=== PATIENT | male | born 1945 | race Caucasian/White ===

== ENCOUNTER 2017-03-31 10:54 | Emergency (ER) | payer MEDICARE, OTHER ==
[~2017-03-31] VITALS: Ht 193 cm; Wt 93.0 kg
[2017-03-31] MEDS ORDERED: ASPIR-LOW81 MG PO (11:08)
[2017-03-31] MEDS ORDERED: NORCO 5-325 TA1 EACH PO (12:14)
--- NOTE | 2017-03-31 19:17 | EKG ---
[facility] [address] [facility] [place] [address] Signed Sinus rhythm with occasional premature ventricular complexes Inferior infarct , age undetermined Abnormal ECG No previous ECGs available Confirmed by RITCHIE LEE MD ([id number]) on 03/31/2017 7:17:40 PM Electronically Signed By: RITCHIE LEE MD 03/31/171916 PATIENT NAME: LIAM MACARIO Electrocardiogram DATE OF : 49 PHYSICIAN: RITCHIE LEE MD REPORT #: [id number] REPORT IS CONFIDENTIAL AND NOT TO BE RELEASED WITHOUT AUTHORIZATION
== END 2017-03-31 12:50 | disposition home or self-care (01) ==
LOC: ED 10:54
DX: S42.001A Fracture of unspecified part of right clavicle, initial encounter for closed fracture (principal); S01.01XA Laceration without foreign body of scalp, initial encounter; S09.90XA Unspecified injury of head, initial encounter; Z79.82 Long term (current) use of aspirin; Z23 Encounter for immunization; W18.30XA Fall on same level, unspecified, initial encounter
CPT/HCPCS: 70450; 71010; 73000; 80053; 84484; 85025; 90471; 90715; 93005; 93010; 96360; 99284; J7030

== ENCOUNTER 2017-04-06 05:45 | Day surgery (SDC) | payer MEDICARE, OTHER ==
[~2017-04-06] VITALS: Ht 193 cm; Wt 93.0 kg
[~2017-04-06 05:45] MED LIST: ASPIR-LOW81 MG PO; NORCO 5-325 TA1 EACH PO
--- NOTE | 2017-04-06 06:37 | NUR ---
LE 0545: PT ARRIVED TO ROOM 5 WITH . WIPE DOWN COMPLETE. PT C/O CONSTIPATION, PT STATES " I FEEL LIKE I HAVE TO HAVE A BM, BUT CAN'T." PT'S STATES THAT HE HAS HAD COLACE WITH NO RESULTS, HAS NOT HAD ANY OTHER OTCS. ADMISSION COMPLETED, IV PLACED IN THE L FORARM. CONSENTS SIGNED AND WITNESSED. EDUCATION COMPLETE, CALL LIGHT IN REACH. PT IN BED RESTING.
--- NOTE | 2017-04-06 09:02 | NUR ---
04/06/17 0902 Cary Hernandez 0893 REPORT FROM CAT BREEDER. PT HAS SCAB ON HEAD WITH SUTURES REMOVED BY OR, SMALL AMOUNT OF DRAINAGE NOTED. BRUISING NOTED ON CHEST AND UP ON RIGHT SHOULDER. RESP EVEN AND UNLABERED.
[2017-04-06] MEDS ORDERED: OXYCODONE HCL5 MG PO ×2 (10:27→10:30)
--- NOTE | 2017-04-06 11:01 | NUR ---
LE 0945: PT RETURNED TO ROOM FROM PACU. RESTING, AWAKENS TO VOICE. RATES PAIN 5/10 IN THE R SHOULDER WHICH THE PT STATES "IS TOLERABLE." REPORT RECVD, VITALS OBTAINED. DRSG C/D/I, CRYO CUFF AND SLING IN PLACE. NO FURTHER NEEDS AT THIS TIME, CALL LIGHT IN REACH. AT BEDSIDE.
--- NOTE | 2017-04-06 11:04 | NUR ---
LE 1045: IN TO CHECK ON PT, PT AWAKE SITTING IN BED. VITALS TAKEN. CRACKERS AND JELLO GIVEN PER REQUEST. PT TOLERATED WELL. PO PAIN MEDICATION GIVEN. PT ADVISED NEED TO URINATE BEFORE DISCHARGE. NO FURTHER NEEDS AT THIS TIME, CALL LIGHT IN REACH. AT BEDSIDE.
--- NOTE | 2017-04-13 08:04 | OR ---
[facility] [address] [place], [place] [address] Signed DATE OF OPERATION: 04/06/2017 SURGEON: Mika Payne MD PREOPERATIVE DIAGNOSIS: Displaced comminuted right clavicle fracture. POSTOPERATIVE DIAGNOSIS: Displaced comminuted right clavicle fracture. PROCEDURE PERFORMED: Open reduction and internal fixation, right clavicle. HOUSING DEVELOPMENT SPECIALIST: Crystal Rodney PA-C. Crystal was present for critical positioning, retraction, and wound closure. ANESTHESIA: General with interscalene block. BLOOD LOSS: 100 mL. IMPLANTS: A 7-hole 3.5 mm clavicle plate with 8 screws. BRIEF HISTORY: José Miguel is a 71-year-old gentleman who was at work and hit his head on an aircraft prop, knocking himself out and falling on the ground, fracturing his clavicle. His head was cleared by CT scan and week elapsed allowing the soft tissue to settle down. We elected to take him to the operating room, after we had a discussion of risks, benefits, alternatives, and he elected to proceed. DESCRIPTION OF PROCEDURE: Once consent was obtained, he was taken to the operating room. After adequate anesthesia, he was placed in the low beach-chair position, all downside pressure points well padded. The right arm was prepped and draped in standard sterile fashion up to the angle of the jaw. The fracture was identified on the image intensifier and a 3-inch incision was centered over this and taken through skin subcutaneous tissue. The fracture was extensively comminuted and distracted. The fracture pieces were dissected free and Electronically Signed By: MIKA PAYNE MD 04/12/17 0833 PATIENT NAME: JOSÉ MIGUEL MACARIO OPERATIVE REPORT DATE OF : 49 PHYSICIAN: MIKA PAYNE MD REPORT #: [id number] REPORT IS CONFIDENTIAL AND NOT TO BE RELEASED WITHOUT AUTHORIZATION [facility] [address] [place], [place] [address] Signed all overlying soft tissue was removed. The shoulder was elevated and the fracture was brought into position and clamped. It took several attempts of reduction of 2 clamps to get it in position. A 1.6 mm K-wire was then advanced from the anterior aspect of the medial portion of the fracture and across the fracture line holding in position. Plate was then fashioned to fit the superior and anterior superior aspects of the clavicle and this was checked using image intensifier and found to be in good position. Two screws were placed and then the K-wire was removed. The remaining screws were placed. Two screws were placed in lag fashion through the fracture itself. The inferior fragment was then clamped into position and lagged with 1 screw through the plate and one 2.7 screw anterior to the plate. The holes in the plate were drilled and appropriate length screws were placed. This was checked using image intensifier. Once screw was found to be long, it was replaced with a shorter screw. The final radiograph showed good reduction and good plate placement of screw length. Wound was copiously irrigated with antibiotic solution. The deltoid was closed with 0 Vicryl. The subcutaneous tissue with 2-0 Monocryl and the skin with kvng. Wound was dressed with Mepilex Ag dressing and ABD and he was awakened and taken to the recovery room in satisfactory condition. He was placed in an UltraSling. He tolerated the procedure well. All sponge, needle, and instrument counts were correct. Mika Payne MD BA/SHARONL /[id number] Electronically Signed By: MIKA PAYNE MD 04/12/17 0833 PATIENT NAME: JOSÉ MIGUEL MACARIO OPERATIVE REPORT DATE OF : 49 PHYSICIAN: MIKA PAYNE MD REPORT #: [id number] REPORT IS CONFIDENTIAL AND NOT TO BE RELEASED WITHOUT AUTHORIZATION
== END 2017-04-06 11:55 | disposition home or self-care (01) ==
LOC: DS 05:45 → OPS 05:45 → DS 06:45 → OPS 11:55
PROVIDERS: Specialist
PROC: 0PS904Z Reposition Right Clavicle with Internal Fixation Device, Open Approach (ICD-10-PCS; principal; 2017-04-06 06:45)
DX: S42.021A Displaced fracture of shaft of right clavicle, initial encounter for closed fracture (principal); Z98.890 Other specified postprocedural states; Z87.891 Personal history of nicotine dependence; W22.8XXA Striking against or struck by other objects, initial encounter; Y93.89 Activity, other specified; Y92.813 Airplane as the place of occurrence of the external cause
CPT/HCPCS: 01630; 64415; 64417; 73020; 76942; C1713; J0330; J0690; J0735; J1100; J1885; J2250; J2405; J2704; J2765; J3010; J7120

== ENCOUNTER 2018-07-12 06:45 | Day surgery (SDC) | payer MEDICARE, OTHER ==
[~2018-07-12] VITALS: Ht 193 cm; Wt 91.6 kg
[~2018-07-12 06:45] MED LIST changes: +OXYCODONE HCL5 MG PO; +SILDENAFIL20 MG PO
--- NOTE | 2018-07-12 09:13 | NUR ---
07/12/18 0913 Rosa Payne 0908 PT TO PACU SLEEPING O2 VIA NASAL CANNULA AT 2L PT RESTING COMFORABLY RESPONDS TO VOICE COMMANDS.
--- NOTE | 2018-07-12 14:09 | NUR ---
PT ALERT, ORIENTED AND PLEASANT. HAS HAD SCOPES BEFORE, AND WHEN I MENTIONED EGD WAS ON MY SCHEDULE, HE STATED HE WASN'T AWARE OF THAT. MENTIONED TO SOFIYA SANDOVAL, AND SHE STATED HE DECLINED KNOWING ABOUT SCOPE, AND WILL NOT HAVE EGD. EXTENDED A BLESSING TO PT, WILL FOLLOW NEEDED
--- NOTE | 2018-07-13 06:30 | OR ---
[facility] [address] [place], [place] [address] Signed DATE OF OPERATION: 07/12/2018 SURGEON: Nayana Youngblood MD PREOPERATIVE DIAGNOSIS: Personal history of colonic polyps (2005). POSTOPERATIVE DIAGNOSES: 1. Minimal internal and external hemorrhoids. 2. Minimal shallow distal sigmoid diverticulosis. 3. 3-5 mm polyps at 90 cm (x2), 58 cm, distal right colon, 25 cm and 10 cm (x3). PROCEDURE: Colonoscopy with hot biopsy. ESTIMATED BLOOD LOSS: None. INDICATIONS: José Miguel is a 72-year-old gentleman, who has had multiple colonic polyps removed back in 2005. He has been coming every 5 years for his followup colonoscopy. He has no lower GI complaints. There is no family history of colon cancer or polyps. In the office, I gave José Miguel a pamphlet on colonoscopy and we looked at that together along with the risks including, but not limited to gas bloating, crampy abdominal pain, bleeding, perforation, requiring surgery, and missed diagnosis. He also understands the need for IV conscious sedation. He has done well with Versed and fentanyl in the past. He had expressed understanding and wished to proceed. PROCEDURE NOTE: José Miguel was taken into our endoscopy suite and placed in the left lateral decubitus position. He was given IV sedation with 5 mg of Versed and 100 mcg of fentanyl. A digital rectal exam was performed and this did show some mild external hemorrhoids circumferentially. He had good sphincter tone. His prostate is not particularly large, but it is indurated in the left and is a little more prominent than the right. After this the adult colonoscope was introduced and advanced all around into the cecum under direct visualization of camera without difficulty. His prep was good. The scope was slowly withdrawn. Pictures were taken throughout for photodocumentation. The above-mentioned polyps were easily removed with the help of hot biopsy forceps. We also saw just a few diverticula in his distal sigmoid colon. They were very shallow, very small and I am sure they are clinically insignificant. Once in the rectum, the scope Electronically Signed By: NAYANA YOUNGBLOOD MD 07/13/18 0630 PATIENT NAME: JOSÉ MIGUEL MACARIO GENE OPERATIVE REPORT DATE OF : 49 REPORT #: [id number] PHYSICIAN: NAYANA YOUNGBLOOD MD PCP: UNASSIGNED DOCTOR REPORT IS CONFIDENTIAL AND NOT TO BE RELEASED WITHOUT AUTHORIZATION [facility] [address] [place], [place] [address] Signed was then retroflexed and he does have some minimal internal hemorrhoid columns as well. After this, the gas was suctioned out and the colonoscope removed. José Miguel tolerated the procedure quite well. RECOMMENDATIONS: I will see oJsé Miguel back in my office in 7 to 14 days to review his results. MD WILLOW Brooks/JIMMY /[id number] cc: Trudy Baptiste MD Copies: ~ Electronically Signed By: NAYANA YOUNGBLOOD MD 07/13/18 0630 PATIENT NAME: JOSÉ MIGUEL MACARIO OPERATIVE REPORT DATE OF : 49 REPORT #: [id number] PHYSICIAN: NAYANA YOUNGBLOOD MD PCP: UNASSIGNED DOCTOR REPORT IS CONFIDENTIAL AND NOT TO BE RELEASED WITHOUT AUTHORIZATION
== END 2018-07-12 09:54 | disposition home or self-care (01) ==
LOC: OPS 06:45 → DS 06:45 → OPS 08:30 → DS 08:30 → OPS 09:54
PROVIDERS: Colon & Rectal Surgery
PROC: 0DBE8ZX Excision of Large Intestine, Via Natural or Artificial Opening Endoscopic, Diagnostic (ICD-10-PCS; 2018-07-12)
PROC: 0DBK8ZZ Excision of Ascending Colon, Via Natural or Artificial Opening Endoscopic (ICD-10-PCS; principal; 2018-07-12 08:30)
DX: Z12.11 Encounter for screening for malignant neoplasm of colon (principal); D12.2 Benign neoplasm of ascending colon; K63.5 Polyp of colon; K64.8 Other hemorrhoids; K64.4 Residual hemorrhoidal skin tags; K57.30 Diverticulosis of large intestine without perforation or abscess without bleeding; K21.9 Gastro-esophageal reflux disease without esophagitis; Z79.82 Long term (current) use of aspirin; Z86.010 Personal history of colon polyps; Z98.890 Other specified postprocedural states; Z87.891 Personal history of nicotine dependence; Z88.1 Allergy status to other antibiotic agents
CPT/HCPCS: 99153; G0500; J2250; J3010; J7120

== ENCOUNTER 2018-07-20 16:53 | Emergency (ER) | payer MEDICARE, OTHER ==
[~2018-07-20] VITALS: Ht 294.6 cm; Wt 90.3 kg
[2018-07-20] MEDS ORDERED: NORCO 5-325 TA1 EACH PO (20:11)
[2018-07-20] MEDS ORDERED: FLOMAX0.4 MG PO (20:11)
[2018-07-20] MEDS ORDERED: ONDANSETRON ODT4 MG SL (20:11)
== END 2018-07-20 20:40 | disposition home or self-care (01) ==
LOC: ED 16:53
DX: N13.2 Hydronephrosis with renal and ureteral calculous obstruction (principal); N28.9 Disorder of kidney and ureter, unspecified; Z87.891 Personal history of nicotine dependence; Z79.82 Long term (current) use of aspirin
CPT/HCPCS: 74177; 80053; 81001; 85025; 96374; 99284-25; J2405; J7030; Q9967

== ENCOUNTER 2018-08-08 07:53 | Day surgery (SDC) | payer MEDICARE, OTHER ==
[~2018-08-08] VITALS: Ht 193 cm; Wt 87.1 kg
--- NOTE | ~2018-08-08 | OR ---
[facility] [address] [place], [place] [address] [place] DATE OF OPERATION: 08/08/2018 SURGEON: Lesa Hadley MD PREOPERATIVE DIAGNOSIS: An 8 mm right proximal ureteral calculus. POSTOPERATIVE DIAGNOSIS: An 8 mm distal right ureteral calculus. NAME OF PROCEDURES: 1. Diagnostic cystoscopy with right retrograde pyelogram. 2. Right semi-rigid ureteroscopy with laser lithotripsy and basket extraction of stone fragments. 3. Right ureteral stent insertion. ANESTHESIA: General. ESTIMATED BLOOD LOSS: Minimal. COMPLICATIONS: None. SPECIMENS: Fragments of right ureteral calculus sent to the lab for stone analysis. DRAINS: A 6 x 28 cm double-J ureteral stent inserted into the right collecting system. INDICATIONS FOR PROCEDURE: Mr. Macario is a very pleasant 72-year-old gentleman who presented to me in July. Upon referral from the [facility] Emergency Department after he presented there with sudden onset of right-sided flank pain. His creatinine was noted to have bumped from normal range to around 1.5, likely secondary to acute obstruction. A CT scan revealed an 8 mm right proximal ureteral calculus with associated mild hydronephrosis. When he was seen in clinic, he initially elected to undergo an attempted trial of passage of his stone. I insisted at the time that he be placed on the operating room schedule in approximately 2 to 3 weeks to undergo a right ureteroscopy with laser PATIENT NAME: LIAM MACARIO [facility] OPERATIVE REPORT DATE OF : 49 REPORT #: [id number] PHYSICIAN: LESA HADLEY MD PCP: ROSENDO GARZA MD REPORT IS CONFIDENTIAL AND NOT TO BE RELEASED WITHOUT AUTHORIZATION [facility] [address] [place], [place] [address] Draft lithotripsy and stone extraction in anticipation of failure of trial of passage. The patient presented this morning reporting that his pain had been fairly consistent, but he did not think he had passed a stone. He now presents to undergo the aforementioned procedure. FINDINGS: 1. On cystoscopy, there was no evidence of any suspicious masses, lesions, or stones. There was diffuse grade 2 to 3 bladder wall trabeculation. Bilateral ureteral orifices are in their normal anatomic location effluxing clear urine. 2. Right retrograde pyelogram reveals a total of two filling defects in the distal right ureter. Repeat retrograde revealed that the one of the ureteral filling defects was an artifact. In the mid portion of the ureter, it does curve outward distally, but is not coiled shape. There is evidence of distention of the right renal pelvis. However, the calices appeared to be within normal limits. 3. The 8 mm stone was visualized in the distal right ureter and was fragmented using a holmium laser at 8 and 0.8 settings, 98% of the stone burden was then successfully extracted using a Zero tip basket, leaving the stone dust within the ureter that should pass on its own. 4. A 6 x 28 cm double-J ureteral stent was inserted into the right ureter under direct visualization without difficulty at the end of the procedure. DESCRIPTION OF PROCEDURE: After informed consent was obtained, the patient was taken back to the operating room. He was transferred from the [facility] to the operative room table, where general anesthetic was induced. He was placed in the dorsal lithotomy position and his genitalia prepped and draped in a sterile fashion. Using a 30-degree lens on a 22.5-Yakut introducer, a rigid cystoscope was inserted through his urethra into his bladder under direct visualization. Panendoscopic views of the bladder were then obtained. Please see above findings. A cone-tipped catheter was then advanced to the level of the right ureteral orifice and a right retrograde pyelogram was performed. Please see the findings. I then advanced a semi-rigid MR6LA scope through the urethra into the bladder. I then advanced the scope into the right ureter and performed a distal right ureteroscopy. I visualized the stone and fragmented the stone with a 270 micron fiber at 8 and 0.8 settings. The stone fragmented fairly easily. I was able to extract 98% of the stone burden using a Zero tip basket without difficulty. The remaining portion of the stone was stone dust that should pass on its own naturally. I then repeated a retrograde pyelogram of the right ureter via the ureteroscope and I did not appreciate any filling defects in the proximal ureter. I attempted to pass the semi-rigid scope further into the right ureter. However, the curve in the ureter prohibited me from doing so. I then passed a Sensor wire through the ureteroscope and into the right renal pelvis under direct visualization. Over the wire, I passed a 6 x 28 cm double-J ureteral stent into the right ureter under direct visualization. An adequate proximal coil was seen within PATIENT NAME: LIAM MACARIO OPERATIVE REPORT DATE OF : 49 REPORT #: [id number] PHYSICIAN: LESA HADLEY MD PCP: ROSENDO GARZA MD REPORT IS CONFIDENTIAL AND NOT TO BE RELEASED WITHOUT AUTHORIZATION [address] [address] [place] the superior aspect of the right renal pelvis once the Sensor wire was pulled. An adequate distal coil was seen within the bladder. I then extracted the stone fragments from the patient's bladder and emptied the patient's bladder all completely. The procedure was then terminated. The patient tolerated the procedure well without any complication. He will now be transferred to the postanesthesia care unit in stable condition. DISPOSITION: I will discuss the details of today's procedure with Mr. Macario once he awakes from anesthesia. He will be sent home today with Macrobid 100 mg p.o. b.i.d. for a total of 7 days, along with Percocet 5/325 dispense #30 q.6 hours p.r.n. pain. He will be scheduled to return to clinic this to undergo cystoscopy with right ureteral stent extraction. MD YAJAIRA Caicedo/JIMMY /[id number] Copies: ~ PATIENT NAME: LIAM MACARIO OPERATIVE REPORT DATE OF : 49 REPORT #: [id number] PHYSICIAN: LESA HADLEY MD PCP: ROSENDO GARZA MD REPORT IS CONFIDENTIAL AND NOT TO BE RELEASED WITHOUT AUTHORIZATION
[~2018-08-08 07:53] MED LIST changes: +ACETAMINOPHEN325 M1 PO; +FLOMAX0.4 MG PO; +ONDANSETRON ODT4 MG SL
--- NOTE | 2018-08-08 10:49 | NUR ---
08/08/18 Hanna9 Coni Manzanares 1034- PT ARRIVES TO PACU. PT IS REACTIVE TO NOXIOUS STIMULI. PT DOES NOT FOLLOW COMMANDS OR ANSWER QUESTIONS AT THIS TIME AND INSTANTLY FALLS BACK TO SLEEP. RESP EVEN AND UNLABORED. OXYGEN SAT HIGH 90'S TO 100% ON 6L VIA MASK. 1044- PT IS MORE AROUSABLE. OXYGEN MASK REMOVED. OXYGEN SAT HIGH 90'S TO 100% ON RA. RESP EVEN AND UNLABORED. 1047- PT SITTING UP SIPPING ON WATER. TOLERATING WELL.
--- NOTE | 2018-08-08 11:15 | NUR ---
PT RETURNS TO DS ROOM 3 ON RA. PT AROUSABLE YET DROWSY AND FALLS BACK ASLEEP EASILY. PT RESPONDS TO VERBAL STIMULUS AND ANSWERS QUESTIONS APPROPRIATELY. PT REPORTS MINIMAL NAUSEA BUT DENIES PAIN. WATER AND CRACKERS AT BEDSIDE. CALL LIGHT WITHIN REACH
[2018-08-08] MEDS ORDERED: MACROBID 100 M100 MG PO (11:24)
[2018-08-08] MEDS ORDERED: PYRIDIUM200 MG PO (11:25)
[2018-08-08] MEDS ORDERED: PERCOCET 5-3251 EACH PO (11:25)
--- NOTE | 2018-08-08 11:42 | NUR ---
PT RESTING IN BED WITH EYES CLOSED. RR EVEN AND UNLABORED. PT DENIES PAIN AND REPORTS CONTINUED NAUSEA. PT DECLINES THE NEED FOR MEDICATION AT THIS TIME AND ASKS TO REST. CALL LIGHT WITHIN REACH
--- NOTE | 2018-08-08 12:09 | NUR ---
PT CALL LIGHT ALRAMING. PT REPORTS NEED TO VOID. PT DANGLES AT BEDSIDE AND DENIES NAUSEA, LIGHTHEADEDNESS. PT DENIES PAIN PT SALINE LOCKED AND AMBULATES WITH STAND BY ASSIST TO BATHROOM. PT VOIDS 275 ML BLOOD TINGED URINE. PT REPORTS BLADDER FEELING EMPTY AND DENIES DIFFICULTY WITH URINATION. PT AMBULATES BACK TO BED AND SCDS APPLIED. PT PROVIDED WITH SOUP AND CRACKERS. CALL LIGHT WITHIN REACH.
--- NOTE | 2018-08-08 12:52 | NUR ---
pt up to bathroom to void and tolerates. pt voids 225 ml light blood tinged urine without difficulty. pt back to bed and tolerates po fluids, denies pain/nausea. call light within reach
== END 2018-08-08 13:45 | disposition home or self-care (01) ==
LOC: DS 07:53 → OPS 07:53 → DS 10:40 → OPS 13:45
PROVIDERS: Urology
PROC: 0TC68ZZ Extirpation of Matter from Right Ureter, Via Natural or Artificial Opening Endoscopic (ICD-10-PCS; principal; 2018-08-08 09:00)
PROC: 0T768DZ Dilation of Right Ureter with Intraluminal Device, Via Natural or Artificial Opening Endoscopic (ICD-10-PCS; 2018-08-08 09:00)
PROC: BT1DYZZ Fluoroscopy of Right Kidney, Ureter and Bladder using Other Contrast (ICD-10-PCS; 2018-08-08 09:00)
DX: N13.2 Hydronephrosis with renal and ureteral calculous obstruction (principal); N32.89 Other specified disorders of bladder; M54.2 Cervicalgia; G89.29 Other chronic pain; K21.9 Gastro-esophageal reflux disease without esophagitis; Z88.1 Allergy status to other antibiotic agents; Z79.82 Long term (current) use of aspirin; Z79.899 Other long term (current) drug therapy; Z87.891 Personal history of nicotine dependence
CPT/HCPCS: 00910; 74420; 82365; C1769; C2617; J0696; J1100; J1885; J2250; J2405; J2704; J2765; J3010; J7120; Q9967